=== PATIENT | female | born 1965 | race African-American/Black ===

== ENCOUNTER 2016-11-13 09:10 | Emergency (ER) | payer BC, OTHER ==
[2016-11-13 09:16] VITALS: BP 144/80; PULSE 87; TEMP 98.8; BMI 29.1
[2016-11-13] MEDS ORDERED: KETOROLAC TROMETHAMINE 60 MG/2 ML VIAL IM ONE (10:03)
[2016-11-13] MEDS ORDERED: KETOROLAC TROMETHAMINE 60 MG/2 ML VIAL ONE (10:05)
--- NOTE | 2016-11-13 10:09 | PDOC ---
History of Present Illness - General Chief Complaint: Pain Stated Complaint: RT arm NUMBNESS Time Seen by Provider: 11/13/16 09:56 History Source: Patient Exam Limitations: No Limitations - History of Present Illness Initial Comments: 11/13/16 10:03 Patient here with complaints of right elbow pain for many years. States 6 months ago received some steroid injections to her elbow from Dr. Spicer that resolved much of this aching and tenderness but pain has recurred. The past 2 weeks pain is worsened where she is having difficulty sleeping. 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 Takes ibuprofen with some resolved. Occurred: reports: other Severity: reports: moderate Pain Location: reports: upper extremity Method of Injury: Yes: other (right elbow) Modifying Factors: improves with: cold therapy, pain medication Associated Symptoms (Fall): denies symptoms Past History - Travel Traveled outside of the country in the last 30 days: Yes Close contact w/someone who was outside of country & ill: Yes - Past Medical History Allergies/Adverse Reactions: Allergies Allergy/AdvReac Type Severity Reaction Status Date / Time No Known Allergies Allergy Verified 11/13/16 09:12 Home Medications: Ambulatory Orders Atenolol [Tenormin -] 25 mg PO DAILY 02/04/16 Oxycodone HCl/Acetaminophen [Percocet 5-325 mg Tablet] 1 - 2 tab PO Q6H #60 tab MDD 6 02/04/16 Anemia: No Asthma: No Cancer: No Cardiac Disorders: No CVA: No COPD: No CHF: No Dementia: No Diabetes: No GI Disorders: No Disorders: No HTN: Yes Hypercholesterolemia: No Liver Disease: No Seizures: No Thyroid Disease: No - Surgical History Abdominal Surgery: No Appendectomy: Yes Cardiac Surgery: No Cholecystectomy: No Lung Surgery: No Neurologic Surgery: No Orthopedic Surgery: No - Suicide/Smoking/Psychosocial Hx Smoking History: Never smoked Have you smoked in the past 12 months: No Information on smoking cessation initiated: No Hx Alcohol Use: No Drug/Substance Use Hx: No Substance Use Type: None Hx Substance Use Treatment: No Trauma Specific PMHX - Complaint Specific PMHX Back Injury: No Neck Injury: No Review of Systems - Review of Systems Able to Perform ROS?: Yes Is the patient limited Croatian proficient: Yes Constitutional: Yes: Symptoms Reported, See HPI. No: Fever, Malaise HEENTM: Yes: See HPI. No: Symptoms Reported Respiratory: No: Symptoms reported Musculoskeletal: Yes: Symptoms Reported, See HPI, Joint Pain, Joint Swelling ( right elbow) Integumentary: Yes: See HPI. No: Symptoms Reported, Bruising, Pruritus, Rash Neurological: Yes: See HPI. No: Symptoms reported, Headache All Other Systems: Reviewed and Negative *Physical Exam - Vital Signs Last Vital Signs Temp Pulse Resp BP Pulse Ox 98.8 F 87 18 144/80 100 11/13/16 09:13 11/13/16 09:13 11/13/16 09:13 11/13/16 09:13 11/13/16 09:13 - Physical Exam General Appearance: Yes: Nourished, Appropriately Dressed, Apparent Distress, Mild Distress HEENT: positive: TIEN, TMs Normal, Pharynx Normal Neck: positive: Supple. negative: Tender, Lymphadenopathy (R), Lymphadenopathy (L) Respiratory/Chest: positive: Lungs Clear, Normal Breath Sounds Musculoskeletal: positive: Normal Inspection, Decreased Range of Motion ( tenderness reproduced along the lateral aspect of right elbow with point tenderness at lateral epicondyles. Painful with supination and pronation at wrist, consistent with a tennis elbow or tendinitis. Strong flexion and extension to hand but that also reproduces pain at elbow joint. 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 Spicer or Williams Kuhn for further evaluation and possible therapies *DC/Admit/Observation/Transfer Diagnosis at time of Disposition: Epicondylitis, lateral, right - Discharge Dispostion Disposition: HOME Condition at time of disposition: Stable Admit: No - Referrals Referrals: Yahir Ashby MD [Primary Care Provider] - Dov [place] MD [Staff Physician] - - Patient Instructions Printed Discharge Instructions: DI for Lateral Epicondylitis (Tennis Elbow) Additional Instructions: Rest, ice to area on and off for 15 minutes 4-6 times a day Avoid heavy lifting or exercise until pain and swelling is resolved or until further directed Keep area highly elevated to reduce swelling Use splints/Abhinav wrap as directed Followup with orthopedist in one to 2 days if not improving, if significantly improved may wait one week for followup with orthopedist May use ibuprofen 2-200 mg tablets every 6 hours as needed for pain - Post Discharge Activity Forms/Work/School Notes: Back to Work
== END 2016-11-13 10:15 | disposition home or self-care (01) ==
LOC: JERFT 09:10
PROC: 3E0233Z Introduction of Anti-inflammatory into Muscle, Percutaneous Approach (ICD-10-PCS; principal; 2016-11-13)
DX: M77.11 Lateral epicondylitis, right elbow (principal); I10 Essential (primary) hypertension
CPT/HCPCS: 99281-25

== ENCOUNTER 2017-07-02 08:53 | Emergency (ER) | payer BC, OTHER ==
[2017-07-02 09:04] VITALS: BP 121/79; PULSE 82; TEMP 98.2; BMI 29.9
--- NOTE | 2017-07-02 09:40 | PDOC ---
History of Present Illness - General Chief Complaint: Eye Problem Stated Complaint: EYE PROBLEM Time Seen by Provider: 07/02/17 09:05 History Source: Patient Exam Limitations: No Limitations - History of Present Illness Initial Comments: 07/02/17 09:49 Best Contact: PCP:Dr So Pmhx: Hypertension Pshx: None Allergies: NO KNOWN DRUG ALLERGIES FH: Mother at age 73/father at 80 years old: Unknown medical history Social Hx: Cigarettes/ non-e Alcohol/ none Drugs/none LMP:N/A 51-year-old female presents to the emergency department complaining of foreign body sensation to the left eye without visual disturbance, diplopia or blurry vision. Patient states while walking yesterday, she felt something go in her left eye. Patient denies any other complaints. Unknown last tetanus Past History - Past Medical History Allergies/Adverse Reactions: Allergies Allergy/AdvReac Type Severity Reaction Status Date / Time No Known Allergies Allergy Verified 07/02/17 09:02 Home Medications: Ambulatory Orders NK [No Known Home Medication] 07/02/17 Anemia: No Asthma: No Cancer: No Cardiac Disorders: No CVA: No COPD: No CHF: No Dementia: No Diabetes: No GI Disorders: No Disorders: No HTN: Yes Hypercholesterolemia: No Liver Disease: No Seizures: No Thyroid Disease: No - Surgical History Abdominal Surgery: No Appendectomy: Yes Cardiac Surgery: No Cholecystectomy: No Lung Surgery: No Neurologic Surgery: No Orthopedic Surgery: No - Suicide/Smoking/Psychosocial Hx Smoking History: Never smoked Have you smoked in the past 12 months: No Hx Alcohol Use: No Drug/Substance Use Hx: No Substance Use Type: None Hx Substance Use Treatment: No Review of Systems - Review of Systems Able to Perform ROS?: Yes Comments:: 07/02/17 09:52 CONSTITUTIONAL: Absent: fever, chills, diaphoresis, generalized weakness, malaise, loss of appetite HEENT: Absent: rhinorrhea, nasal congestion, throat pain, throat swelling, difficulty swallowing, mouth swelling, ear pain, eye pain, visual Changes CARDIOVASCULAR: Absent: chest pain, loss of consciousness, palpitations, irregular heart rate, peripheral edema RESPIRATORY: Absent: cough, shortness of breath, dyspnea with exertion, orthopnea, wheezing, stridor, hemoptysis GASTROINTESTINAL: Absent: abdominal pain, abdominal distension, nausea, vomiting, diarrhea, constipation, melena, hematochezia GENITOURINARY: Absent: dysuria, frequency, urgency, hesitancy, hematuria, flank pain, genital pain MUSCULOSKELETAL: Absent: myalgia, arthralgia, joint swelling SKIN: Absent: rash, itching, pallor HEMATOLOGIC/IMMUNOLOGIC: Absent: easy bleeding, easy bruising, lymphadenopathy, frequent infections ENDOCRINE: Absent: unexplained weight gain, unexplained weight loss, heat intolerance, cold intolerance NEUROLOGIC: Absent: headache, focal weakness or paresthesias, dizziness, unsteady gait, seizure, mental status changes, bladder or bowel incontinence PSYCHIATRIC: Absent: anxiety, depression, suicidal or homicidal ideation, hallucinations. Is the patient limited Spanish proficient: No *Physical Exam - Vital Signs Last Vital Signs Temp Pulse Resp BP Pulse Ox 98.2 F 82 18 121/79 99 07/02/17 09:02 07/02/17 09:02 07/02/17 09:02 07/02/17 09:02 07/02/17 09:02 - Physical Exam Comments: 07/02/17 09:52 GENERAL: Well developed, well nourished. Awake and alert. No acute distress. HEENT: Normocephalic, atraumatic. PERRLA, EOMI. No conjunctival pallor. Sclera are non- icteric. Moist mucous membranes. Oropharynx is clear. Left eye: 2mm superficial corneal abrasion to 9 o"clock neg hyphema Bilateral eyes are symmetric without proptosis or proptosis Negative preauricular nodes and submandibular/mental nodes Limits/lacrimation: Mid margin/lashes: Negative left right is Eyelids everted/negative erythema Conjunctiva/sclera: White and nonicteric Conjunctiva is not injected Iris: Flat pupils round Lens/clear: Not hazy PROCEDURE NOTE To drop Alcaine left eye *DC/Admit/Observation/Transfer Diagnosis at time of Disposition: Corneal abrasion, left Qualifiers: Encounter type: initial encounter Qualified Code(s): S05.02XA - Injury of conjunctiva and corneal abrasion without foreign body, left eye, initial encounter - Discharge Dispostion Disposition: HOME Condition at time of disposition: Stable Decision to Admit order: No - Referrals Referrals: Yahir Ashby MD [Primary Care Provider] - Riley Underwood MD [Staff Physician] - - Patient Instructions Printed Discharge Instructions: DI for Corneal Abrasion Additional Instructions: Avoid rubbing eyes It is important that you follow up with an hairspring setter within 48 hours/Dr. Underwood [phone] Left tetanus shot has been updated today Return back to the emergency department for severe/persistent or worsening symptoms - Post Discharge Activity
[2017-07-02] MEDS ORDERED: TETRACAINE 0.5% HCL 0.6ML DROPPER.BOTTLE OS ONE (09:42)
[2017-07-02] MEDS ORDERED: ERYTHROMYCIN 0.5% OPHTHALMIC OINTMENT 3.5 GM TUBE OS ONE (09:57)
[2017-07-02] MEDS ORDERED: DIPHTH,PERTUSS(ACELL),TET 0.5 ML DISP.SYRIN IM ONE (09:58)
[2017-07-02] MEDS ORDERED: ERYTHROMYCIN 0.5% OPHTHALMIC OINTMENT 3.5 GM TUBE ONE (10:02)
== END 2017-07-02 10:06 | disposition home or self-care (01) ==
LOC: JERFT 08:53
DX: S05.02XA Injury of conjunctiva and corneal abrasion without foreign body, left eye, initial encounter (principal); X58.XXXA Exposure to other specified factors, initial encounter; Y93.89 Activity, other specified; Y92.89 Other specified places as the place of occurrence of the external cause; Y99.8 Other external cause status; I10 Essential (primary) hypertension
CPT/HCPCS: 90715; 99281-25

== ENCOUNTER 2018-11-04 18:13 | Emergency (ER) | payer OTHER ==
[2018-11-04 18:26] VITALS: BP 117/58; PULSE 76; TEMP 98.7; BMI 30.2
--- NOTE | 2018-11-04 19:03 | PDOC ---
History of Present Illness - General Chief Complaint: Injury Stated Complaint: INJURED HAND Time Seen by Provider: 11/04/18 18:54 History Source: Patient Exam Limitations: No Limitations - History of Present Illness Initial Comments: 11/04/18 18:58 53 year old female with history of HTN complaining of pain to right wrist since yesterday. Patient reports while doing laundry she hit her wrist on the wall since then she is having a hard time using her hand for eating. States took advil this am but pain persist. 11/04/18 19:06 Occurred: reports: yesterday Severity: reports: mild Upper Extremity Pain Location: right: hand, wrist Method of Injury: reports: direct blow Modifying Factors: improves with: immobilization, pain medication Extremity Pain Location - Extremity Pain Location Extremity Pain Locations: right: hand Past History - Travel Traveled outside of the country in the last 30 days: No Close contact w/someone who was outside of country & ill: No - Past Medical History Allergies/Adverse Reactions: Allergies Allergy/AdvReac Type Severity Reaction Status Date / Time No Known Allergies Allergy Verified 11/04/18 18:21 Home Medications: Ambulatory Orders Atenolol [Tenormin -] 25 mg PO HS 11/04/18 Ibuprofen 600 mg PO TID #20 tablet 11/04/18 Anemia: No Asthma: No Cancer: No Cardiac Disorders: No CVA: No COPD: No CHF: No Dementia: No Diabetes: No GI Disorders: No Disorders: No HTN: Yes Hypercholesterolemia: No Liver Disease: No Seizures: No Thyroid Disease: No - Surgical History Abdominal Surgery: No Appendectomy: Yes Cardiac Surgery: No Cholecystectomy: No Lung Surgery: No Neurologic Surgery: No Orthopedic Surgery: No - Psycho Social/Smoking Cessation Hx Smoking History: Never smoked Have you smoked in the past 12 months: No Information on smoking cessation initiated: No Hx Alcohol Use: No Drug/Substance Use Hx: No Substance Use Type: None Hx Substance Use Treatment: No Review of Systems - Review of Systems Able to Perform ROS?: Yes Is the patient limited Uzbek proficient: No Constitutional: No: Chills, Fever HEENTM: No: Throat Pain, Throat Swelling, Mouth Pain Respiratory: No: Orthopnea, Shortness of Breath Cardiac (ROS): No: Lightheadedness, Palpitations ABD/GI: No: Blood Streaked Bowels, Poor Appetite, Vomiting, Indigestion : No: Incontinence, Pain, Urgency Musculoskeletal: Yes: Other (+). No: Back Pain Neurological: No: Headache, Numbness *Physical Exam - Vital Signs Last Vital Signs Temp Pulse Resp BP Pulse Ox 98.7 F 76 18 117/58 L 98 11/04/18 18:22 11/04/18 18:22 11/04/18 18:22 11/04/18 18:22 11/04/18 18:22 - Physical Exam General Appearance: Yes: Nourished, Appropriately Dressed HEENT: positive: TMs Normal, Pharynx Normal Neck: positive: Supple. negative: Lymphadenopathy (R), Lymphadenopathy (L) Respiratory/Chest: positive: Lungs Clear, Normal Breath Sounds Cardiovascular: positive: Regular Rhythm, Regular Rate Extremity: positive: Other (+ small amount of swelling, ) Neurologic: positive: Fully Oriented, Alert Medical Decision Making - Medical Decision Making 11/04/18 19:07 53 year old female with history of HTN complaining of pain to right wrist since yesterday. Patient reports while doing laundry she hit her wrist on the wall since then she is having a hard time using her hand for eating. right wrist pain -xray of right wrist -analgesia 11/04/18 19:23 wet read negative x ray splint applied d/c home Discharge - Discharge Information Problems reviewed: Yes Clinical Impression/Diagnosis: Wrist pain Qualifiers: Laterality: right Qualified Code(s): M25.531 - Pain in right wrist Condition: Good Disposition: HOME - Admission No - Additional Discharge Information Prescriptions: Ibuprofen 600 mg PO TID #20 tablet - Follow up/Referral Referrals: Yahir Ashby MD [Primary Care Provider] - (call for follow up appointment ) - Patient Discharge Instructions Patient Printed Discharge Instructions: DI for Wrist Sprain Additional Instructions: Remove splint for sleeping and showering Elevate wrist at rest May take ibuprofen for pain as directed. Return to emergency room for numbness tingling of fingers - Post Discharge Activity Work/Back to School Note: Back to Work
[2018-11-04] MEDS ORDERED: IBUPROFEN 600 MG TABLET (FP) PO ONE (19:08)
== END 2018-11-04 20:17 | disposition home or self-care (01) ==
LOC: JERFT 18:13
PROC: 2W3CX1Z Immobilization of Right Lower Arm using Splint (ICD-10-PCS; principal; 2018-11-04)
DX: M25.531 Pain in right wrist (principal); W22.09XA Striking against other stationary object, initial encounter; Y93.E2 Activity, laundry; Y92.89 Other specified places as the place of occurrence of the external cause; Y99.8 Other external cause status
CPT/HCPCS: 29126; 73110-TC-RT-FY; 73130-TC-RT-FY; 99281-25

== ENCOUNTER 2019-10-22 19:48 | Emergency (ER) | payer OTHER ==
--- NOTE | 2019-10-22 19:59 | PDOC ---
Rapid Medical Evaluation Time Seen by Provider: 10/22/19 19:55 Medical Evaluation: Allergies Allergy/AdvReac Type Severity Reaction Status Date / Time No Known Allergies Allergy Verified 07/09/19 13:22 10/22/19 19:56 CC: epigastric pain x 1week, no vomiting no nausea, placed on meds by pmd this week but no improvement Exam: epigastric tenderness, vss Plan: labs Discharge Disposition - Diagnosis Epigastric abdominal pain - Referrals Referrals: Yahir Ashby MD [Primary Care Provider] - - Patient Instructions - Post Discharge Activity
[2019-10-22 20:04] VITALS: BMI 30.6
--- OUTSIDE RECORDS SUMMARY | 2019-10-22 20:06 | XMS ---
:1965 Author Organization [facility] Support Name Relationship Address Phone [employer] Unavailable [address] [phone] [place] [address] DONNA PRATT DAUGHTER [address] [place] [address] DONNA PRATT Child [address] [facility] [place] [address] Re-disclosure Warning The records that you are about to access may contain information from federally- assisted alcohol or drug abuse programs. If such information is present, then the following federally mandated warning applies: This information has been disclosed to you from records protected by federal confidentiality rules (42 CFR part 2). The federal rules prohibit you from making any further disclosure of this information unless further disclosure is expressly permitted by the written consent of the person to whom it pertains or as otherwise permitted by 42 CFR part 2. A general authorization for the release of medical or other information is NOT sufficient for this purpose. The Federal rules restrict any use of the information to criminally investigate or prosecute any alcohol or drug abuse patient.The records that you are about to access may contain highly sensitive health information, the redisclosure of which is protected by Article 27-F of the [facility] Public Health law. If you continue you may haveaccess to information: Regarding HIV / AIDS; Provided by facilities licensed or operated by the [facility] Office of Mental Health; or Provided by the [facility] Office for People With Developmental Disabilities. If such information is present, then the following [facility] mandated warning applies: This information has been disclosed to you from confidential records which are protected by state law. State law prohibits you from making any further disclosure of this information without the specific written consent of the person to whom it pertains, or as otherwise permitted by law. Any unauthorized further disclosure in violation of state law may result in a fine or penitentiary sentence or both. A general authorization for the release of medical or other information is NOT sufficient authorization for further disclosure. Insurance Providers Payer name Policy type Policy ID Covered Covered constitution party's Policy P masha / Coverage constitution party ID relationship to Sp[employer] Inf ormation type spivey JESSICA [id number] 500 HEALTH NON CAP Results ID Date Data Source [id number] 08/28/2019 02:35:00 PM EDT [facility] Name Value Range Interpretation Code Description Data Arlen rce(s) Supporting Document(s ) SARS-COV-2 [facility] QL YOLANDA+PROBE This lab [facility] and reported by [facility]. Procedure
--- NOTE | 2019-10-22 20:23 | PDOC ---
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 Has had years of intermittent epigastric pain, now having 3 days of worsening pain. Described as sawing pain in lower chest/upper abdomen. Has not been able to sleep, lying supine causes worse pain. Pain is worse after eating, poor PO intake. Denies fever, N/V/D, lower abdomen pain, upper chest pain, palpitations, SOB, GRIMALDO. Has never had OR/ACS, GB disease, pancreatitis. Has never seen GI. PMD Isma started her on a daily GERD medication that has not helped. No prior abd surgeries. Only med is atenolol QD for HTN. Denies alcohol/drugs/tobacco. Past History - Medical History Allergies/Adverse Reactions: Allergies Allergy/AdvReac Type Severity Reaction Status Date / Time No Known Allergies Allergy Verified 07/09/19 13:22 Home Medications: Ambulatory Orders Atenolol [Tenormin -] 25 mg PO HS 11/04/18 Naproxen 500 mg PO BID PRN #30 tablet 06/03/19 Naproxen 500 mg PO BID PRN #30 tablet 06/03/19 Ketorolac Tromethamine [Toradol] 10 mg PO TID #21 tablet 07/09/19 Famotidine [Pepcid -] 20 mg PO DAILY #14 tablet 10/22/19 Anemia: No Asthma: No Cancer: No Cardiac Disorders: No CVA: No COPD: No CHF: No Dementia: No Diabetes: No GI Disorders: No Disorders: No HTN: Yes Hypercholesterolemia: No Liver Disease: No Seizures: No Thyroid Disease: No - Surgical History Abdominal Surgery: No Appendectomy: Yes Cardiac Surgery: No Cholecystectomy: No Lung Surgery: No Neurologic Surgery: No Orthopedic Surgery: No - Reproductive History Is Patient Now?: No - Psycho-Social/Smoking History Smoking History: Never smoked Have you smoked in the past 12 months: No - Substance Abuse Hx (Audit-C & DAST Scrn) How often the patient has a drink containing alcohol: Never Score: In Men: 4 or > Positive; In Women: 3 or > Positive: 0 Screen Result (Pos requires Nsg. Audit-10AR): Negative Review of Systems - Review of Systems Able to Perform ROS?: Yes Constitutional: No: Symptoms Reported HEENTM: No: Symptoms Reported Respiratory: No: Symptoms reported Cardiac (ROS): No: Chest Pain, Lightheadedness, Palpitations, Syncope ABD/GI: Yes: Poor Appetite, Poor Fluid Intake, Abdominal cramping. No: Constipated, Diarrhea, Nausea, Vomiting : No: Symptoms Reported Integumentary: No: Symptoms Reported Neurological: No: Symptoms reported Endocrine: No: Symptoms Reported Hematologic/Lymphatic: No: Symptoms Reported All Other Systems: Reviewed and Negative *Physical Exam - Vital Signs Last Vital Signs Temp Pulse Resp BP Pulse Ox 97.8 F 76 20 128/56 L 98 10/22/19 19:57 10/22/19 19:57 10/22/19 19:57 10/22/19 19:57 10/22/19 19:57 - Physical Exam General Appearance: Yes: Nourished, Appropriately Dressed, Obese, Other (resting in bed in NAD, pain improved with sitting up in bed). No: Apparent Distress HEENT: positive: EOMI, TIEN, Normal Voice, Symmetrical, Pharynx Normal. negative: Scleral Icterus (R), Scleral Icterus (L), Pharyngeal Erythema, Tonsillar Exudate, Tonsillar Erythema Neck: positive: Trachea midline, Normal Thyroid, Supple. negative: Tender, Rigid, Decreased range of motion, Lymphadenopathy (R), Lymphadenopathy (L) Respiratory/Chest: positive: Lungs Clear, Normal Breath Sounds. negative: Chest Tender, Respiratory Distress, Accessory Muscle Use, Crackles, Rales, Rhonchi, Stridor, Wheezing Cardiovascular: positive: Regular Rhythm, Regular Rate. negative: Murmur Gastrointestinal/Abdominal: positive: Normal Bowel Sounds, Tender (epigastric, negative Monge's), Soft, Protuberent. negative: Pulsatile Mass, Distended, Guarding, Rebound, Hernia Musculoskeletal: positive: Normal Inspection. negative: CVA Tenderness, Decreased Range of Motion, Vertebral Tenderness Extremity: positive: Normal Capillary Refill, Normal Inspection, Normal Range of Motion, Pelvis Stable. negative: Tender Integumentary: positive: Normal Color, Dry, Warm Neurologic: positive: Fully Oriented, Alert, Normal Mood/Affect, Normal Response ED Treatment Course - LABORATORY CBC & Chemistry Diagram: 10/22/19 20:00 10/22/19 20:00 Medical Decision Making - Medical Decision Making 10/22/19 20:23 Patient presents with one week post-prandial epigastric pain acutely worsening last 3 days at night without fever, N/V. VSS. Patient in NAD. Concerned for ACS/gastritis/GB pathology/pancreatitis. Ordered CBC/CMP/ECG/CXR/CP/lipase for broad evaluation. Giving Pepcid/Maalox/IVF for epigastric pain. 10/22/19 21:07 ECG NSR with HR 71, QTc 399, TWI in III, V3-V4, without HE/D. TWI consistent with priors. CXR no acute pathology. 10/22/19 21:37 Labs notable for: - WBC WNL - Coags WNL - CMP WNL 10/22/19 21:55 Patient feeling much better after Maalox/Pepcid, can send home with Pepcid/Maalox Rx. Pending US results. Signed out to night team. If no pathology on US can d/c home with Pepcid Rx and GI f/u. Discharge - Discharge Information Problems reviewed: Yes Clinical Impression/Diagnosis: Epigastric abdominal pain Condition: Stable Disposition: HOME - Additional Discharge Information Prescriptions: Famotidine [Pepcid -] 20 mg PO DAILY #14 tablet - Follow up/Referral Referrals: Yahir Ashby MD [Primary Care Provider] - Sabino Mendez DO [Staff Physician] - - Patient Discharge Instructions Patient Printed Discharge Instructions: DI for Gastroesophageal Reflux Disease (GERD) Additional Instructions: Today you were evaluated for abdominal pain. Your labs are all normal. Your ultrasound is normal. Your pain is likely being caused by gastritis or acid reflux, and you need to see a GI doctor for further care, and a referral has been given. We are sending you home with the same medication we gave you called Pepcid, and we recommend you take Maalox as well over the counter. See your regular doctor in the next few days for further care. If you experience worsening pain, nausea, vomiting, or any other new or concerning symptoms, please return to the emergency room. - Post Discharge Activity
[2019-10-22] MEDS ORDERED: SODIUM CHLORIDE 0.9% 500 ML INFUS.BAG IV ONE (20:40)
[2019-10-22] MEDS ORDERED: MAG HYDROX/AL HYDROX/SIMETH 30 ML UNIT-DOSE CUP PO ONE (20:40)
[2019-10-22] MEDS ORDERED: FAMOTIDINE 20 MG/50 ML IVPB 20 MG/50 ML MG IVPB ONE ×2 (20:40→20:46)
[2019-10-22] MEDS ORDERED: MAG HYDROX/AL HYDROX/SIMETH 30 ML UNIT-DOSE CUP ONE (20:46)
[2019-10-22 21:19] LABS: BASO % 0.9 % (0-2.0); EOS % 2.7 % (0-4.5); HEMATOCRIT 38.2 % (32.4-45.2); HEMOGLOBIN 12.8 GM/dL (10.7-15.3); LYMPH % 42.7 % (8-40); MCH 28.6 pg (25.7-33.7); MCHC 33.6 g/dl (32.0-36.0); MEAN PLT VOLUME 9.8 fl (7.5-11.1); NEUT % 38.7 % (42.8-82.8); PLATELET COUNT 216 K/MM3 (134-434); RBC 4.49 M/mm3 (3.60-5.2); RDW 13.9 % (11.6-15.6); WHITE BLOOD COUNT 3.8 K/mm3 (4.0-10.0)
[2019-10-22 21:27] LABS: INR 0.97 (0.83-1.09); PROTHROMBIN TIME (PATIENT) 11.5 SEC (9.7-13.0)
[2019-10-22 21:30] LABS: ACTIVATED PTT 35.7 SECONDS (25.2-36.5)
--- NOTE | 2019-10-22 21:37 | PDOC ---
Documentation entered by Katherine Dick SCRIBE, acting as scribe for Cortney Diaz DO. Cortney Diaz DO: This documentation has been prepared by the ronaldoe, Katherine Dick SCRIBE, under my direction and personally reviewed by me in its entirety. I confirm that the documentation accurately reflects all work, treatment, procedures, and medical decision making performed by me. Attending Attestation - Resident Resident Name: Delfino Rm - ED Attending Attestation I have performed the following: I have examined & evaluated the patient, The case was reviewed & discussed with the resident, I agree w/resident's findings & plan, Exceptions are as noted - HPI HPI: 10/22/19 20:27 Patient is a 54 year old female with a significant past medical history of hypertension who presents to the ED with epigstric pain. Patient stated her pain starts in the lower part of her chest and ends at the upper portion of her abdomen. Patient reports she has not been able to sleep properly because laying down makes her pain worse. Patient also disclosed that she has been having intermittent epigastric pain for years but it has been getting really worse over the past 3 days. Patient endorses: decrease in PO intake Patient denies: fever, headache, nausea, vomiting, SOB, upper chest pain, palpitations, lower abdominal pain, diarrhea, or any other related symptoms. Allergies: NKDA - Physicial Exam PE: 10/22/19 21:28 Gen: aaox3, nad heart: +s1s2 reg lungs: cta b/l abd: soft, epigastric ttp, no rebound or guarding ext: no c/c/e - Medical Decision Making 10/22/19 21:30 a/p: 54yo female with intermittent episodes of upper abd pain -assoc with eating and drinking water -states she gets bloated -concern for gastritis vs pud vs acute ana maria -no vomiting, but gets nauseated -will send labs, RUQ ultrasound, meds, will monitor and reassess 10/22/19 21:58 pt feels much better cxr clear labs reviewed RUQ ultrasound neg 10/22/19 22:37 ruq ultrasound neg for gallstones stable for dc to home and follow up with pmd and gi Heart Score/ECG Review - ECG Intrepretation Comment:: 10/22/19 21:31 sinus at 71, nl axis, t wave inversions iii which are nonspecific, t wave inersions v3 and v4, abnl ekg Discharge - Discharge Information Problems reviewed: Yes Clinical Impression/Diagnosis: Epigastric abdominal pain Condition: Stable Disposition: HOME - Admission No - Additional Discharge Information Prescriptions: Famotidine [Pepcid -] 20 mg PO DAILY #14 tablet - Follow up/Referral Referrals: Yahir Ashby MD [Primary Care Provider] - Sabino Mendez DO [Staff Physician] - - Patient Discharge Instructions Patient Printed Discharge Instructions: DI for Gastroesophageal Reflux Disease (GERD) Additional Instructions: Today you were evaluated for abdominal pain. Your labs are all normal. Your ultrasound is normal. Your pain is likely being caused by gastritis or acid reflux, and you need to see a GI doctor for further care, and a referral has been given. We are sending you home with the same medication we gave you called Pepcid, and we recommend you take Maalox as well over the counter. See your regular doctor in the next few days for further care. If you experience worsening pain, nausea, vomiting, or any other new or concerning symptoms, please return to the emergency room. - Post Discharge Activity
[2019-10-22 21:54] LABS: ALBUMIN 3.9 g/dl (3.4-5.0); ALK PHOS 106 U/L (45-117); ANION GAP 5 MMOL/L (8-16); BILIRUBIN,TOTAL 0.3 mg/dL (0.2-1); BLOOD UREA NITROGEN 15.7 mg/dL (7-18); CALCIUM 9.5 mg/dL (8.5-10.1); CHLORIDE 107 mmol/L (98-107); CO2 30 mmol/L (21-32); CREATININE 0.8 mg/dL (0.55-1.3); GLUCOSE,RANDOM 95 mg/dL (74-106); POTASSIUM 4.4 mmol/L (3.5-5.1); SGOT/AST 31 U/L (15-37); SGPT/ALT 81 U/L (13-61); SODIUM 142 mmol/L (136-145); TOT PROT 7.6 g/dl (6.4-8.2)
--- NOTE | 2019-10-22 22:39 | PDOC ---
*Physical Exam - Vital Signs Last Vital Signs Temp Pulse Resp BP Pulse Ox 97.8 F 76 20 128/56 L 98 10/22/19 19:57 10/22/19 19:57 10/22/19 19:57 10/22/19 19:57 10/22/19 19:57 ED Treatment Course - LABORATORY CBC & Chemistry Diagram: 10/22/19 20:00 10/22/19 20:00 - ADDITIONAL ORDERS Additional order review: Laboratory Results 10/22/19 10/22/19 10/22/19 20:00 20:00 20:00 PT with INR 11.50 INR 0.97 PTT (Actin FS) 35.7 Sodium 142 Potassium 4.4 Chloride 107 Carbon Dioxide 30 Anion Gap 5 L BUN 15.7 Creatinine 0.8 Est GFR (CKD-EPI)AfAm 95.52 Est GFR (CKD-EPI)NonAf 82.42 Random Glucose 95 Calcium 9.5 Total Bilirubin 0.3 AST 31 ALT 81 H Alkaline Phosphatase 106 Creatine Kinase 83 Troponin I < 0.02 Total Protein 7.6 Albumin 3.9 Lipase 177 10/22/19 20:00 RBC 4.49 MCV 85.0 MCHC 33.6 RDW 13.9 MPV 9.8 Neutrophils % 38.7 L Lymphocytes % 42.7 H Monocytes % 15.0 H Eosinophils % 2.7 Basophils % 0.9 - Medications Given in the ED: ED Medications Discontinued Medications Generic Name Dose Route Start Last Admin Trade Name Freq PRN Reason Stop Dose Admin Al Hydroxide/Mg Hydroxide 30 ml 10/22/19 20:40 10/22/19 20:50 Mylanta Oral Suspension - PO 10/22/19 20:41 30 ml ONCE ONE Administration Famotidine/Sodium Chloride 20 mg in 50 mls @ 100 mls/hr 10/22/19 20:40 10/22/19 20:50 Pepcid 20 Mg Premixed Ivpb - IVPB 10/22/19 21:09 100 mls/hr ONCE ONE Administration Sodium Chloride 500 ml 10/22/19 20:40 10/22/19 20:50 Normal Saline - IV 10/22/19 20:41 500 ml ONCE ONE Administration Medical Decision Making - Medical Decision Making 10/22/19 22:38 normal sonogram, labs unremakable d/c with follow up to pcp pt improved after pepcid and maalox. 10/22/19 22:38 Discharge - Discharge Information Problems reviewed: Yes Clinical Impression/Diagnosis: Epigastric abdominal pain Condition: Stable Disposition: HOME - Additional Discharge Information Prescriptions: Famotidine [Pepcid -] 20 mg PO DAILY #14 tablet - Follow up/Referral Referrals: Yahir Ashby MD [Primary Care Provider] - Sabino Mendez DO [Staff Physician] - - Patient Discharge Instructions Patient Printed Discharge Instructions: DI for Gastroesophageal Reflux Disease (GERD) Additional Instructions: Today you were evaluated for abdominal pain. Your labs are all normal. Your ul trasound is normal. Your pain is likely being caused by gastritis or acid reflux, and you need to see a GI doctor for further care, and a referral has been given. We are sending you home with the same medication we gave you called Pepcid, and we recommend you take Maalox as well over the counter. See your regular doctor in the next few days for further care. If you experience worsening pain, nausea, vomiting, or any other new or concerning symptoms, please return to the emergency room. - Post Discharge Activity
[2019-10-23 04:00] VITALS: BP 126/78; PULSE 72; TEMP 98.6
--- NOTE | 2019-10-23 09:54 | EKG ---
Test Reason : Blood Pressure : / mmHG Vent. Rate : 071 BPM Atrial Rate : 071 BPM P-R Int : 156 ms QRS Dur : 066 ms QT Int : 368 ms P-R-T Axes : 045 -09 -08 degrees QTc Int : 399 ms NORMAL SINUS RHYTHM NONSPECIFIC T WAVE ABNORMALITY ABNORMAL ECG WHEN COMPARED WITH ECG OF 26-JUL-2015 11:04, NO SIGNIFICANT CHANGE WAS FOUND Confirmed by IDALMIS MERCER MD ([id number]) on 10/23/2019 9:53:28 AM Referred By: Confirmed By:IDALMIS MERCER MD
== END 2019-10-22 22:45 | disposition home or self-care (01) ==
LOC: JER 19:48
PROC: 3E033NZ Introduction of Analgesics, Hypnotics, Sedatives into Peripheral Vein, Percutaneous Approach (ICD-10-PCS; principal; 2019-10-22)
DX: R10.13 Epigastric pain (principal)
CPT/HCPCS: 36415; 71045-TC-FY; 76705-TC; 80053; 82550; 83690; 84484; 85025; 85610; 85730; 93005; 93010; 99285-25

== ENCOUNTER 2019-12-27 11:45 | Emergency (ER) | payer OTHER ==
[2019-12-27 11:51] VITALS: BP 131/57; PULSE 73; TEMP 98.4; BMI 30.6
[2019-12-27] MEDS ORDERED: KETOROLAC TROMETHAMINE 30 MG/1 ML VIAL IM ONE (12:22)
[2019-12-27] MEDS ORDERED: KETOROLAC TROMETHAMINE 30 MG/1 ML VIAL ONE (12:29)
== END 2019-12-27 13:50 | disposition home or self-care (01) ==
LOC: JERFT 11:45
PROC: 3E0233Z Introduction of Anti-inflammatory into Muscle, Percutaneous Approach (ICD-10-PCS; principal; 2019-12-27)
DX: M25.561 Pain in right knee (principal)
CPT/HCPCS: 73562-TC-RT-FY; 99285-25

== ENCOUNTER 2021-03-15 14:44 | Emergency (ER) | payer OTHER ==
[2021-03-15 15:08] VITALS: BP 144/77; PULSE 68; TEMP 97.8; BMI 31.7
[2021-03-15] MEDS ORDERED: KETOROLAC TROMETHAMINE 60 MG/2 ML VIAL IM ONE (17:49)
[2021-03-15] MEDS ORDERED: KETOROLAC TROMETHAMINE 30 MG/1 ML VIAL ONE (17:51)
== END 2021-03-15 20:03 | disposition home or self-care (01) ==
LOC: JERFT 14:44
PROC: 3E0233Z Introduction of Anti-inflammatory into Muscle, Percutaneous Approach (ICD-10-PCS; principal; 2021-03-15)
DX: M25.531 Pain in right wrist (principal)
CPT/HCPCS: 71046-TC-FY; 72070-TC-FY; 73110-TC-RT-FY; 99284-25

== ENCOUNTER 2021-05-04 14:46 | Emergency (ER) | payer OTHER ==
[2021-05-04 14:56] VITALS: BMI 30.7
[2021-05-04] MEDS ORDERED: ACETAMINOPHEN 500 MG TABLET (FP) PO ONE (17:25)
[2021-05-04] MEDS ORDERED: ACETAMINOPHEN 500 MG TABLET (FP) ONE (17:45)
[2021-05-04 18:38] LABS: EPI CELLS >36 /uL (0-25.1); HYALINE CASTS 0 /uL (0-3.1); URINE APPEARANCE CLEAR; URINE BACTERIA 1068 /uL (0-1359); URINE BILIRUBIN NEGATIVE (NEGATIVE); URINE COLOR YELLOW; URINE GLUCOSE (UA) NEGATIVE (NEGATIVE); URINE KETONE NEGATIVE (NEGATIVE); URINE LEUK ESTERASE TRACE (NEGATIVE); URINE NITRITE NEGATIVE (NEGATIVE); URINE PROTEIN TRACE (NEGATIVE); URINE RBC 13 /uL (0-23.9); URINE UROBILINOGEN 0.2 mg/dL (0.2-1.0); URINE WBC 23 /uL (0-25.8)
[2021-05-04 19:54] VITALS: BP 147/86; PULSE 89; TEMP 99
[2021-05-05 14:08] LABS: SARS-CoV-2 NAA Not Detected (Not Detected)
== END 2021-05-04 19:54 | disposition home or self-care (01) ==
LOC: JER 14:46
DX: R50.9 Fever, unspecified (principal); R51.9 Headache, unspecified; R11.2 Nausea with vomiting, unspecified; J09.X2 Influenza due to identified novel influenza A virus with other respiratory manifestations
CPT/HCPCS: 71046-TC-FY; 81003; 87086; 87804; 99284-25; C9803-CS; U0003; U0005

== ENCOUNTER 2023-01-30 19:22 | Emergency (ER) | payer BC, OTHER ==
[2023-01-30 19:52] VITALS: BP 116/57; RESP 20; BMI 30.7
[2023-01-30] MEDS ORDERED: IBUPROFEN 600 MG TABLET (FP) PO ONE ×2 (20:28→21:07)
[2023-01-30] MEDS ORDERED: ACETAMINOPHEN 500 MG TABLET (FP) PO ONE (20:28)
[2023-01-30] MEDS ORDERED: guaiFENesin/D-METHORPHAN HB 10 ML UNIT-DOSE CUPS PO ONE (20:28)
[2023-01-30] MEDS ORDERED: guaiFENesin/D-METHORPHAN HB 10 ML UNIT-DOSE CUPS ONE (21:07)
[2023-01-30] MEDS ORDERED: ACETAMINOPHEN 500 MG TABLET (FP) ONE (21:08)
[2023-01-30 22:19] VITALS: PULSE 108; TEMP 100.9
== END 2023-01-30 22:30 | disposition home or self-care (01) ==
LOC: JERFT 19:22
DX: R50.9 Fever, unspecified (principal); M79.10 Myalgia, unspecified site; R09.81 Nasal congestion; R51.9 Headache, unspecified; U07.1 COVID-19
CPT/HCPCS: 0241U-QW; 99283-25

== ENCOUNTER 2023-10-17 15:44 | Emergency (ER) | payer OTHER ==
[2023-10-17 15:51] VITALS: BP 141/60; PULSE 73; RESP 18; TEMP 98.5; BMI 30.7
[2023-10-17] MEDS ORDERED: ACETAMINOPHEN 325 MG TABLET (FP) ONE (16:56)
[2023-10-17] MEDS: ACETAMINOPHEN 500 MG TABLET (FP) PO ONE (17:00)
[2023-10-17 18:31] LABS: HIV INTERPRETATION NEGATIVE (NEGATIVE)
== END 2023-10-17 19:36 | disposition home or self-care (01) ==
LOC: JER 15:44
DX: M25.561 Pain in right knee (principal); G89.29 Other chronic pain
CPT/HCPCS: 36415; 86803; 87389; 93971-TC; 99284-25